=== PATIENT | male | born 1930 | race Caucasian/White ===

== ENCOUNTER 2016-05-13 11:50 | Emergency (ER) | payer OTHER, MEDICARE ==
[2016-05-13] MEDS ORDERED: FAMOTIDINE 20 MG TABLET PO ONE (12:24)
--- NOTE | 2016-05-13 12:24 | ER Document Report ---
ED Medical Screen (RME) - General Stated Complaint: CHEST PAIN Time seen by provider: 12:21 Mode of Arrival: Ambulatory Information source: Patient Notes: 86-year-old male presents to ED for chest pain that has been intermittent for about a week. States he had some this morning but does not have any at this present time. States he does not know of any cardiac problems. Patient states he thought was just indigestion he went to the doctor at the [facility] and they sent him to the emergency room. Patient states he is not having pain in his abdomen but it does feel like she is having indigestion in his chest. States his mother had a heart attack. Denies nausea or shortness of breath. Denies knowledge of any history of high blood pressure or cholesterol. I have greeted and performed a rapid initial assessment of this patient. A comprehensive ED assessment and evaluation of the patient, analysis of test results and completion of medical decision making process will be conducted by an additional ED providers. TRAVEL OUTSIDE OF THE [place] IN LAST 30 DAYS: No
[2016-05-13] MEDS ORDERED: ASPIRIN 81 MG TABLET, CHEWABLE PO ONE (12:25)
[2016-05-13 12:57] LABS: ABSOLUTE EOSINOPHILS # (AUTO) 0.1 10^3/uL (0.0-0.6); ABSOLUTE LYMPHOCYTES (AUTO) 1.4 10^3/uL (0.5-4.7); ABSOLUTE MONOCYTES (AUTO) 0.6 10^3/uL (0.1-1.4); ABSOLUTE NEUT (AUTO) 3.4 10^3/uL (1.7-8.2); BASOPHILS % (AUTO) 0.4 % (0-2); HEMATOCRIT 45.5 % (37.9-51.0); HEMOGLOBIN 15.4 g/dL (13.5-17.0); HGB HCT DIFFERENCE 0.7; LYMPHOCYTES % (AUTO) 25.3 % (13-45); MEAN CORPUSCULAR HEMOGLOBIN 28.4 pg (27.0-33.4); MEAN CORPUSCULAR HGB CONC 33.9 g/dL (32.0-36.0); MEAN CORPUSCULAR VOLUME 84 fl (80-97); MONOCYTES % (AUTO) 10.6 % (3-13); RED BLOOD COUNT 5.43 10^6/uL (4.35-5.55); SEGMENTED NEUTROPHILS % (AUTO) 61.7 % (42-78); WHITE BLOOD COUNT 5.6 10^3/uL (4.0-10.5)
[2016-05-13 13:23] LABS: ALANINE AMINOTRANSFERASE 27 U/L (21-72); ALBUMIN 4.2 g/dL (3.5-5.0); ALKALINE PHOSPHATASE 94 U/L (38-126); ANION GAP 11 (5-19); ASPARTATE AMINO TRANSFERASE 24 U/L (17-59); BILIRUBIN,DIRECT 0.2 mg/dL (0.0-0.4); BILIRUBIN,TOTAL 0.5 mg/dL (0.2-1.3); BLOOD UREA NITROGEN 13 mg/dL (7-20); CALCIUM 9.4 mg/dL (8.4-10.2); CARBON DIOXIDE 28 mmol/L (22-30); CHLORIDE 106 mmol/L (98-107); CREATINE KINASE 72 U/L (55-170); CREATININE RESULT 0.87 mg/dL (0.52-1.25); GLUCOSE 101 mg/dL (75-110); MAGNESIUM 2.4 mg/dL (1.6-2.3); POTASSIUM 5.5 mmol/L (3.6-5.0); SODIUM 144.8 mmol/L (137-145); TOTAL PROTEIN 6.8 g/dL (6.3-8.2)
[2016-05-13 13:31] LABS: CREATINE KINASE MB 2.29 ng/mL (<4.55)
[2016-05-13 13:33] LABS: TROPONIN I < 0.012 ng/mL
--- NOTE | 2016-05-13 13:49 | EKG REPORT ---
SEVERITY:- NORMAL ECG - SINUS RHYTHM : Confirmed by: Jasbir Guevara MD 13-May-2016 13:48:28
--- NOTE | 2016-05-13 17:33 | ER Document Report ---
ED Cardiac - General Chief Complaint: Chest Pain Stated Complaint: CHEST PAIN Time seen by provider: 17:30 Mode of Arrival: Ambulatory Information source: Patient Notes: This is an 86-year-old man with peripheral vascular disease, hypertension, osteoarthritis who was referred from the [facility] because of chest pain. Patient states that he was going to the [facility] for a normal workup. He did tell the nurse in triage at the [facility] that he did experience some left-sided chest discomfort for approximately an hour. He denies any shortness of breath or radiation down the arm. He said there was spontaneous relief. He was referred to the ER promptly after reporting this to the nurse. Currently, he is comfortable and would like to go home. TRAVEL OUTSIDE OF THE [place] IN LAST 30 DAYS: No - HPI Patient complains to provider of: Other - Chest discomfort Use of: denies: Alcohol, Amphetamines, Bath salts, Caffeine, Cocaine, Decongestants, Other Was the onset of pain: Gradual Is the pain a: Chronic problem Chest pain location: Under breast Quality of pain: Indigestion. denies: Sharp, Stabbing Chest pain radiation location: denies: Left jaw, Left arm, Left shoulder, Right jaw, Right arm, Right shoulder, Back, Neck, None Severity now: None Severity at worst: Mild Pain level currently: Denies Chest pain precipitating factors: At Rest Cardiac risk factors: Hypertension Positive cardiac history: No Associated symptoms: denies: Hypotension, Palpitations, Shortness of breath Exacerbated by: Denies Relieved by: Nothing Similar symptoms previously: Yes Recently seen / treated by doctor: Yes - Related Data Allergies/Adverse Reactions: No Known Allergies Allergy (Unverified 05/13/16 12:25) Past Medical History - General Information source: Patient - Social History Smoking Status: Never Smoker Chew tobacco use (# tins/day): No Frequency of alcohol use: None Drug Abuse: None Lives with: Spouse/Significant other Family History: Reviewed & Not Pertinent Patient has suicidal ideation: No Patient has homicidal ideation: No - Past Medical History Cardiac Medical History: Reports: Hx Hypertension, Hx Peripheral Vascular Disease Pulmonary Medical History: Reports: None EENT Medical History: Reports: None Neurological Medical History: Reports: None Endocrine Medical History: Reports: None Renal/ Medical History: Reports: None. Denies: Hx Peritoneal Dialysis Malignancy Medical History: Reports None GI Medical History: Reports: None Musculoskeltal Medical History: Reports Hx Arthritis Skin Medical History: Reports None Psychiatric Medical History: Reports: None Traumatic Medical History: Reports: None Infectious Medical History: Reports: None Past Surgical History: Reports: Hx Vascular Surgery Review of Systems - Review of Systems Notes: Review of systems: Constitutional: Denies fever, chills. EENT: Denies ear pain, sinus tenderness, throat pain, throat swelling. Cardiovascular: See H&P Respiratory: Denies wheezing, cough, hemoptysis. Abdomen: Denies abdominal pain, nausea, vomiting, diarrhea. Denies BRBPR or melena. Genitourinary: Denies dysuria, pyuria, hematuria, flank pain. Musculoskeletal: denies joint pain or swelling, denies back pain. Neurologic: Denies headache, photophobia, neck stiffness, weakness. Denies loss of bowel or bladder function. Denies saddle anesthesia. Skin: Denies rash, lesions. Physical Exam - Vital signs Vitals: Temp Pulse Resp BP Pulse Ox 97.7 F 55 L 14 171/65 H 100 05/13/16 12:24 05/13/16 12:24 05/13/16 12:24 05/13/16 12:24 05/13/16 12:24 Notes: Physical exam: GENERAL: 86-year-old man, alert and oriented 3, no acute distress. HEAD: Atraumatic, normocephalic. EYES: Pupils equal round and reactive to light, extraocular movements intact, sclera anicteric, conjunctiva are normal. ENT: TMs normal, nares patent, oropharynx clear without exudates. Moist mucous membranes. NECK: Normal range of motion, supple without lymphadenopathy or JVD. LUNGS: Breath sounds clear to auscultation bilaterally and equal. No wheezes rales or rhonchi. HEART: Regular rate and rhythm without murmurs, rubs or gallops. ABDOMEN: Soft, normoactive bowel sounds. No tenderness to palpation. No guarding, no rebound. No masses appreciated. EXTREMITIES: Normal range of motion, no pitting or edema. No clubbing or cyanosis. NEUROLOGICAL: Cranial nerves II through XII grossly intact. Normal speech, normal gait. PSYCH: Normal mood, normal affect. SKIN: Warm, Dry, normal turgor, no rashes or lesions noted. Course - Re-evaluation Re-evalutation: 05/13/16 18:41 Patient is remained pain-free. I did discuss the option of admitting him to the hospital. He is adamantly against it. Based upon this, he did agree to a delayed troponin level which we got. I repeat troponin is negative. He continues to be good and have advised him to follow-up with a cream dipper. - Vital Signs Vital signs: Temp Pulse Resp BP Pulse Ox 97.7 F 55 L 14 171/65 H 98 05/13/16 12:24 05/13/16 12:24 05/13/16 16:45 05/13/16 12:24 05/13/16 16:51 - Laboratory Result Diagrams: 05/13/16 12:35 05/13/16 12:35 Laboratory results interpreted by me: 05/13/16 05/13/16 12:35 12:35 RDW 15.0 H Potassium 5.5 H Magnesium 2.4 H - Diagnostic Test Radiology reviewed: Image reviewed, Reports reviewed - Chest x-ray shows some streaky atelectasis. He does not have any shortness of breath, cough or any pulmonary symptoms. - EKG Interpretation by Me Rate: Normal Rhythm: NSR - EKG shows normal sinus rhythm with a ventricular rate of 59, no acute ST-T wave changes Discharge - Discharge Clinical Impression: chest pain Condition: Stable Disposition: HOME, SELF-CARE Instructions: Chest Pain of Unclear Cause ([facility]) Additional Instructions: Recommendations: Regarding your chest discomfort: It might be that you're chest discomfort was related to gas. As we discussed, there is no guarantees this is not your heart. However, the 2 blood tests by significant amount of time is reassuring that this was not an acute heart attack. I would like you to follow-up with a cream dipper as we discussed. I put the note for the cream dipper on the chart. I would also like the you to follow-up with Dr. Schmidt at the [facility]. I have given a in the discharge paperwork and please bring these with you when you go to the [facility]. Return to the emergency room at once for any further chest pain or any chest discomfort or any concerns you may be getting worse. Continue your current medicines. Regarding your chest x-ray: The chest x-ray report showed some atelectasis which is quite nonspecific. They did recommend that you repeat a chest x-ray in the next 2 weeks to month. I would like you to follow-up with Dr. Schmidt at the [facility] for repeat chest x-ray in the next month. Bring a copy of these instructions as well as the chest x-ray report with you to Dr. Schmidt when you see him. Referrals: SCOUT MILLER MD [ACTIVE STAFF] - Follow up as needed (This is the number of a cream dipper)
[2016-05-13 19:12] VITALS: BP 178/77
== END 2016-05-13 19:52 | disposition home or self-care (01) ==
LOC: ER 11:50
DX: R07.9 Chest pain, unspecified (principal); I73.9 Peripheral vascular disease, unspecified; I10 Essential (primary) hypertension; M19.90 Unspecified osteoarthritis, unspecified site
CPT/HCPCS: 36415; 71020; 80053; 82550; 82553; 83735; 84484; 85025; 93005; 93010; 99285

== ENCOUNTER 2017-04-19 21:25 | Emergency (ER) | payer OTHER, MEDICARE ==
--- NOTE | 2017-04-20 00:05 | ER Document Report ---
ED Flu Like - General Chief Complaint: Flu Symptoms Stated Complaint: FLU LIKE SYMPTOMS Time Seen by Provider: 04/19/17 23:57 Notes: Patient is an 87-year-old male comes emergency department for chief complaint of congestion, cough, chills for the past 2-3 days. He has been exposed to his who has influenza. He has been vaccinated for the influenza. He denies any shortness of breath, chest pain, abdominal pain, vomiting, lightheadedness. He states he feels a little bit weak but otherwise he feels okay. Former smoker, only medical history reported are hypertension and peripheral vascular disease. TRAVEL OUTSIDE OF THE [place] IN LAST 30 DAYS: No - Related Data Allergies/Adverse Reactions: No Known Allergies Allergy (Unverified 05/13/16 12:25) Past Medical History - General Information source: Patient - Social History Smoking Status: Former Smoker Frequency of alcohol use: None Drug Abuse: None Lives with: Family Family History: Reviewed & Not Pertinent - Past Medical History Cardiac Medical History: Reports: Hx Hypertension, Hx Peripheral Vascular Disease Renal/ Medical History: Denies: Hx Peritoneal Dialysis Musculoskeltal Medical History: Reports Hx Arthritis Past Surgical History: Reports: Hx Vascular Surgery - Immunizations Immunizations up to date: Yes Hx Diphtheria, Pertussis, Tetanus Vaccination: Yes Review of Systems - Review of Systems Constitutional: See HPI EENT: See HPI Cardiovascular: No symptoms reported Respiratory: See HPI Gastrointestinal: No symptoms reported Genitourinary: No symptoms reported Male Genitourinary: No symptoms reported Musculoskeletal: No symptoms reported Skin: No symptoms reported Hematologic/Lymphatic: No symptoms reported Neurological/Psychological: No symptoms reported Physical Exam - Vital signs Vitals: Temp Pulse Resp BP Pulse Ox 98.7 F 69 18 110/58 L 96 04/19/17 22:02 04/19/17 22:02 04/19/17 22:02 04/19/17 22:02 04/19/17 22:02 Interpretation: Normal - General General appearance: Appears well In distress: None - HEENT Head: Normocephalic, Atraumatic Eyes: Normal Conjunctiva: Normal Eyelashes: Normal Pupils: PERRL Ears: Normal External canal: Normal Tympanic membrane: Normal Sinus: Normal Nasal: Normal Mouth/Lips: Normal Mucous membranes: Normal Pharynx: Normal Neck: Normal - Respiratory Respiratory status: No respiratory distress. No: Respiratory distress, Labored , Tachypnea Chest status: Nontender Breath sounds: Nonproductive cough - Occasional mild nonproductive cough. No: Decreased air movement, Wheezing Chest palpation: Normal - Cardiovascular Rhythm: Regular. No: Tachycardia Heart sounds: Normal auscultation, S1 appreciated, S2 appreciated Murmur: No - Abdominal Inspection: Normal Distension: No distension Bowel sounds: Normal Tenderness: Nontender. No: Tender, Guarding Organomegaly: No organomegaly - Back Back: Normal, Nontender. No: Tender - Extremities General upper extremity: Normal inspection, Nontender, Normal strength, Normal temperature General lower extremity: Normal inspection, Nontender, Normal strength, Normal temperature. No: Edema - Neurological Neuro grossly intact: Yes Cognition: Normal Orientation: AAOx4 Shiro Coma Scale Eye Opening: Spontaneous Shiro Coma Scale Verbal: Oriented Shaniqua Coma Scale Motor: Obeys Commands Shaniqua Coma Scale Total: 15 Speech: Normal Motor strength normal: LUE, RUE, LLE, RLE Sensory: Normal - Psychological Associated symptoms: Normal affect, Normal mood - Skin Skin Temperature: Warm Skin Moisture: Dry Skin Color: Normal Course - Re-evaluation Re-evalutation: Patient is alert, youthful appearing, well-appearing on exam. Vital signs unremarkable. Chest x-ray unremarkable, CBC nonspecific, chemistry unremarkable. Influenza A is positive. On reexamination patient continues to be well-appearing. Ambulates without any difficulty, no signs of respiratory distress. Discussed workup. After discussion of pros and cons patient and daughter request that they do be treated with Tamiflu. This was provided with an initial dose and a prescription. Providing with Zofran in case of nausea from it, patient is to follow-up within the next 48 hours with his primary care provider for a recheck , discussed strict return precautions based on his age and influenza status, patient and daughter state understanding and agreement. - Vital Signs Vital signs: Temp Pulse Resp BP Pulse Ox 98.7 F 71 16 110/64 96 04/19/17 22:02 04/20/17 01:52 04/20/17 01:52 04/20/17 01:52 04/20/17 01:52 - Laboratory Result Diagrams: 04/20/17 00:20 04/20/17 00:20 Laboratory results interpreted by me: 04/20/17 00:20 RDW 14.8 H Plt Count 129 L Lymphocytes % 12.9 L Discharge - Discharge Clinical Impression: Cough, Influenza A Fever Qualifiers: Fever type: unspecified Qualified Code(s): R50.9 - Fever, unspecified Condition: Stable Disposition: HOME, SELF-CARE Additional Instructions: Your workup is positive for influenza A. Your blood counts do not show any concerning findings, your chest x-ray does not show any concerning pneumonia or other abnormality except an older opacity which needs to have a follow-up CAT scan with your primary care provider for monitoring. As discussed take Tamiflu as prescribed for influenza, take Zofran if needed for nausea, drink plenty of fluids, take Tylenol for fever and body aches, and rest. Please follow-up with your provider within the next 2 days for a reevaluation for monitoring. Return the emergency department if you worsen in anyway including difficulty breathing, confusion, or any other concerning symptoms. Prescriptions: Ondansetron [Zofran Odt 4 mg Tablet] 1 tab PO Q4H PRN #15 tab.rapdis PRN Reason: For Nausea/Vomiting Oseltamivir Phosphate [Tamiflu 75 mg Capsule] 75 mg PO BID #10 capsule
[2017-04-20 00:35] LABS: ABSOLUTE LYMPHOCYTES (AUTO) 1.2 10^3/uL (0.5-4.7); ABSOLUTE NEUT (AUTO) 7.4 10^3/uL (1.7-8.2); BASOPHILS % (AUTO) 0.4 % (0-2); EOSINOPHILS % (AUTO) 0.4 % (0-6); HEMATOCRIT 43.7 % (37.9-51.0); LYMPHOCYTES % (AUTO) 12.9 % (13-45); MEAN CORPUSCULAR HEMOGLOBIN 30.1 pg (27.0-33.4); MEAN CORPUSCULAR HGB CONC 34.3 g/dL (32.0-36.0); MEAN CORPUSCULAR VOLUME 88 fl (80-97); MONOCYTES % (AUTO) 10.1 % (3-13); PLATELET COUNT 129 10^3/uL (150-450); RED BLOOD COUNT 4.99 10^6/uL (4.35-5.55); RED CELL DISTRIBUTION WIDTH 14.8 % (11.5-14.0); SEGMENTED NEUTROPHILS % (AUTO) 76.2 % (42-78); TOTAL CELLS COUNTED % (AUTO) 100 %; WHITE BLOOD COUNT 9.7 10^3/uL (4.0-10.5)
--- NOTE | 2017-04-20 00:59 | RADIOLOGY REPORT (SQ) ---
EXAM DESCRIPTION: CHEST PA/LAT CLINICAL HISTORY: worsening cough, chills COMPARISON: 05/13/2016 FINDINGS: Frontal and lateral views of the chest. Atherosclerotic calcification and tortuosity of thoracic aorta. Left upper lung linear opacities again identified and less confluent than on the comparison study. This may represent area of atelectasis. No lobar dilatation, pneumothorax, or pleural effusion. Degenerative change of the spine. Hyperinflation. Upper abdominal soft tissues are unremarkable. IMPRESSION: 1. No acute pneumonic process identified. 2. Redemonstrated linear slightly nodular left upper lung opacity measuring 1.[address] persistence [address] of the chest recommended for further evaluation of left upper lobe opacity.
[2017-04-20 01:01] LABS: A TYPE INFLUENZA AG POSITIVE (NEGATIVE); B INFLUENZA AG NEGATIVE (NEGATIVE)
[2017-04-20 01:02] LABS: ANION GAP 16 (5-19); BLOOD UREA NITROGEN 16 mg/dL (7-20); CALCIUM 8.7 mg/dL (8.4-10.2); CARBON DIOXIDE 24 mmol/L (22-30); CHLORIDE 98 mmol/L (98-107); GLUCOSE 98 mg/dL (75-110); POTASSIUM 4.4 mmol/L (3.6-5.0); SODIUM 138.3 mmol/L (137-145)
[2017-04-20] MEDS ORDERED: OSELTAMIVIR PHOSPHATE 75 MG CAPSULE PO ONE (01:14)
[2017-04-20] MEDS ORDERED: ONDANSETRON ODT 4 MG TAB (6 TAB/ER DISP) PO PRN (01:17)
[2017-04-20 01:52] VITALS: BP 110/64
== END 2017-04-20 01:52 | disposition home or self-care (01) ==
LOC: ER 21:25
DX: J10.1 Influenza due to other identified influenza virus with other respiratory manifestations (principal); R05 Cough; R50.9 Fever, unspecified; R53.1 Weakness; I10 Essential (primary) hypertension; Z87.891 Personal history of nicotine dependence
CPT/HCPCS: 99284; 36415; 85025; 80048; 87804; 71046; J3490